=== PATIENT | male | born 1965 | race Caucasian/White ===

== ENCOUNTER 2019-02-05 20:36 | Emergency (ER) | payer BC, OTHER ==
[2019-02-05] MEDS ORDERED: Sodium Chloride 0.9% 10 ML Syringe FLUSH PRN (21:26)
--- NOTE | 2019-02-05 21:42 | EDM.PDOC ---
<Jaylin Escobedo - Last Filed: 02/05/19 22:25> ED HPI GENERAL MEDICAL PROBLEM - General Chief Complaint: Cardiovascular Problem Stated Complaint: LEG IS SWOLLEN Time Seen by Provider: 02/05/19 21:05 Source of Information: Reports: Patient, Family History Limitations: Reports: No Limitations - History of Present Illness INITIAL COMMENTS - FREE TEXT/NARRATIVE: Alert 53-year-old gentleman presents with left leg swelling. Patient noticed this morning when he arrived home from work this afternoon had significant swelling about the ankle with significant induration. Swelling has improved over the course of the last couple of hours. Patient has a history of chronic A. fib and which takes aspirin for prevention of clots. Patient had gastric bypass and was told due to decreased risk factors, but it was discontinued at the school. Patient has been drinking alcohol this evening in hopes of ending his blood. Patient presents with his for evaluation. Patient denies any chest pain, shortness breath, headache or any other systemic symptoms. Patient' s concern regarding a clot in his left leg. - Related Data Allergies Allergy/AdvReac Type Severity Reaction Status Date / Time adhesive tape Allergy Cannot Verified 02/05/19 20:58 Remember Sulfa (Sulfonamide Allergy Rash Verified 02/05/19 20:58 Antibiotics) Home Meds: Home Meds Aspirin [Halfprin] 325 mg PO DAILY 04/04/16 [History] Citalopram Hydrobromide [Celexa] 10 mg PO DAILY 07/12/16 [History] Metoprolol Succinate [Toprol XL] 25 mg PO BEDTIME 07/12/16 [History] Ciprofloxacin HCl [Cipro] 500 mg PO BID 02/05/19 [History] Vitamin B Complex [B Complex] 1 tab PO DAILY 02/05/19 [History] Past Medical History HEENT History: Reports: Cataract, Impaired Vision Cardiovascular History: Reports: Afib, High Cholesterol, Hypertension Respiratory History: Reports: Asthma Gastrointestinal History: Reports: GERD Genitourinary History: Reports: Renal Calculus Musculoskeletal History: Reports: Fracture Neurological History: Reports: Concussion, Head Trauma, Other (See Below) Other Neuro History: lymes disease Psychiatric History: Reports: Addiction, Anxiety, Depression Endocrine/Metabolic History: Reports: Diabetes, Type II Hematologic History: Reports: B12 Deficiency, Folic Acid - Infectious Disease History Infectious Disease History: Reports: Chicken Pox, Herpes, Meningitis - Past Surgical History HEENT Surgical History: Reports: Tonsillectomy, Other (See Below) Other HEENT Surgeries/Procedures: deviated septum Cardiovascular Surgical History: Reports: Other (See Below) GI Surgical History: Reports: Bariatric Procedure, Colonoscopy Musculoskeletal Surgical History: Reports: Arthroscopic Knee, Carpal Tunnel Social & Family History - Tobacco Use Smoking Status *Q: Never Smoker - Caffeine Use Caffeine Use: Reports: Coffee - Alcohol Use Days Per Week of Alcohol Use: 7 Number of Drinks Per Day: 4 Total Drinks Per Week: 28 - Recreational Drug Use Recreational Drug Use: No ED ROS GENERAL - Review of Systems Review Of Systems: ROS reveals no pertinent complaints other than HPI. Cardiovascular: Reports: Edema (left leg edema pitting improving ) ED EXAM, GENERAL - Physical Exam Exam: See Below Exam Limited By: No Limitations General Appearance: Alert (mild intoxication ) Eye Exam: Bilateral Eye: EOMI, PERRL Ears: Normal External Exam, Hearing Grossly Normal Ear Exam: Bilateral Ear: Auricle Normal, Canal Normal, TM normal Throat/Mouth: Normal Inspection, Normal Lips, Normal Teeth, Normal Gums, Normal Oropharynx, Normal Voice, No Airway Compromise Head: Normocephalic Neck: Normal Inspection, Supple, Non-Tender, Full Range of Motion Respiratory/Chest: No Respiratory Distress, Lungs Clear, Normal Breath Sounds, No Accessory Muscle Use, Chest Non-Tender Cardiovascular: Normal Peripheral Pulses, Irregularly Irregular, Other (edema pitting trace to +1 left leg ) GI/Abdominal: Normal Bowel Sounds, Soft, Non-Tender, No Organomegaly Back Exam: Normal Inspection, Full Range of Motion, NT Extremities: Normal Inspection, Normal Range of Motion, Non-Tender, Pedal Edema (+1 (photo available edema much improved from +3)) Neurological: Alert, Oriented, CN II-XII Intact, Normal Cognition (mild intoxication), Normal Gait, Normal Reflexes, No Motor/Sensory Deficits Psychiatric: Normal Affect (mild intoxication), Normal Mood Skin Exam: Warm, Dry, Intact, Normal Color, No Rash EKG INTERPRETATION EKG Date: 02/05/19 Time: 21:45 Rhythm: A-Fib Rate (Beats/Min): 66 [place]: Normal P-Wave: Variable (a fib) QRS: Normal ST-T: Normal QT: Normal Comparison: NA - No Prior EKG Course - Vital Signs Last Recorded V/S: Last Vital Signs Temp 97.0 F 0524/19 21:12 Pulse 69 02/05/19 22:10 Resp 16 02/05/19 22:10 BP 135/85 02/05/19 22:10 Pulse Ox 97 02/05/19 22:10 - Orders/Labs/Meds Orders: Active Orders 24 hr Category Date Time Status EKG Documentation Completion [RC] ASDIRECTED Care 02/05/19 21:21 Active Peripheral IV Care [RC] . DIRECTED Care 02/05/19 21:26 Active VL Duplex Lwr Ext Veins Ltd Lt [US] Stat Exams 02/05/19 22:03 Taken Sodium Chloride 0.9% [Saline Flush] Med 02/05/19 21:26 Active 10 ml FLUSH ASDIRECTED PRN Peripheral IV Insertion Adult [OM.PC] Routine Oth 02/05/19 21:26 Ordered EKG 12 Lead [EK] Routine Ther 02/05/19 21:21 Ordered Medication Orders Sodium Chloride (Saline Flush) 10 ml FLUSH ASDIRECTED PRN PRN Reason: Keep Vein Open Last Admin: 02/05/19 21:46 Dose: 10 ml Labs: Laboratory Tests 02/05/19 02/05/19 02/05/19 Range/Units 21:00 21:00 21:00 WBC (4.5-11.0) K/uL RBC (4.30-5.90) M/uL Hgb (12.0-15.0) g/dL Hct (40.0-54.0) % MCV (80-98) fL MCH (27-31) pg MCHC (32-36) % Plt Count (150-400) K/uL Neut % (Auto) (36-66) % Lymph % (Auto) (24-44) % [place] % (Auto) (2-6) % Eos % (Auto) (2-4) % Baso % (Auto) (0-1) % D-Dimer, Quantitative 744 H (0.0-400.0) ng/mL Sodium 138 L (140-148) mmol/L Potassium 3.7 (3.6-5.2) mmol/L Chloride 104 (100-108) mmol/L Carbon Dioxide 23 (21-32) mmol/L Anion Gap 14.7 H (5.0-14.0) mmol/L BUN 15 (7-18) mg/dL Creatinine 1.0 (0.8-1.3) mg/dL Est Cr Clr Drug Dosing 69.89 mL/min Estimated GFR (MDRD) > 60 (>60) Glucose 105 (74-106) mg/dL Calcium 8.7 (8.5-10.1) mg/dL Ethyl Alcohol 207 mg/dL 02/05/19 Range/Units 22:03 WBC 7.1 (4.5-11.0) K/uL RBC 4.59 (4.30-5.90) M/uL Hgb 10.6 L D (12.0-15.0) g/dL Hct 34.4 L (40.0-54.0) % MCV 75 L (80-98) fL MCH 23 L (27-31) pg MCHC 31 L (32-36) % Plt Count 311 (150-400) K/uL Neut % (Auto) 48 (36-66) % Lymph % (Auto) 37 (24-44) % [place] % (Auto) 11 H (2-6) % Eos % (Auto) 3 (2-4) % Baso % (Auto) 0 (0-1) % D-Dimer, Quantitative (0.0-400.0) ng/mL Sodium (140-148) mmol/L Potassium (3.6-5.2) mmol/L Chloride (100-108) mmol/L Carbon Dioxide (21-32) mmol/L Anion Gap (5.0-14.0) mmol/L BUN (7-18) mg/dL Creatinine (0.8-1.3) mg/dL Est Cr Clr Drug Dosing mL/min Estimated GFR (MDRD) (>60) Glucose (74-106) mg/dL Calcium (8.5-10.1) mg/dL Ethyl Alcohol mg/dL Meds: Medications Generic Name Dose Route Start Last Admin Trade Name Freq PRN Reason Stop Dose Admin Sodium Chloride 10 ml 02/05/19 21:26 02/05/19 21:46 Saline Flush FLUSH 10 ml ASDIRECTED PRN Administration Keep Vein Open - Re-Assessments/Exams Free Text/Narrative Re-Assessment/Exam: 02/05/19 22:27 Patient updated regarding blood tests: D-Dimer elevated 788 indicating possible DVT. US left leg ordered for confirmation. Discussed NOAC vs Lovenox/ Coumadin. Patient was on Coumadin in the past and would be more comfortable with Lovenox bridge to Coumadin. Departure - Departure Disposition: Home, Self-Care 01 Clinical Impression: Leg swelling, Leg edema, left Referrals: Rodrigo Lott MD [Primary Care Provider] - Forms: ED Department Discharge Additional Instructions: Please followup with your primary care provider in 3-5 days if not better, please call return to the emergency department with worsening of symptoms. <OfficerJalen - Last Filed: 02/05/19 23:45> Departure - Departure Time of Disposition: 23:44 Condition: Fair - Assessment/Plan Plan: Assessment Acuity = acute Site and laterality = left leg edema Etiology = unknown etiology Manifestations = pain left leg Location of injury = Home Lab values = hemoglobin low at 10.6 consistent with microchromic anemia d-dimer elevated 744 EtOH 207 ultrasound of the left lower extremity whole leg negative for any DVT Plan I did review lab work and ultrasound results with him, His Wells score is 5 puts him at higher risk for DVT would recommend repeat ultrasound in 1 week, he is going to follow up with his primary care in 3-5 days for reevaluation. This note was dictated using [employer] voice recognition software please call with any questions on syntax or grammar.
[2019-02-05 22:10] VITALS: BP 135/85
--- NOTE | 2019-02-06 | CRLUS ---
INDICATION: Left lower extremity swelling TECHNIQUE: Ultrasound venous duplex lower left extremity. Compression venous exam was performed using pink-scale, color Doppler, and spectral Doppler analysis. COMPARISON: None FINDINGS: Sonographic imaging demonstrates the left common femoral, deep femoral, superficial femoral, popliteal, posterior tibial and greater saphenous veins to be fully compressible with normal color Doppler blood flow. IMPRESSION: Normal left lower extremity venous ultrasound, no sign of deep venous thrombosis. Dictated by Sanford Benitez MD @ 02/05/2019 11:57:55 PM Dictated by: Sanford Benitez MD @ 02/05/2019 23:58:02 (Electronically Signed)
== END 2019-02-05 23:56 | disposition home or self-care (01) ==
LOC: JP.ED 20:36
DX: R60.0 Localized edema (principal); F10.129 Alcohol abuse with intoxication, unspecified; I10 Essential (primary) hypertension; F41.9 Anxiety disorder, unspecified; F32.9 Major depressive disorder, single episode, unspecified; I48.2 Chronic atrial fibrillation; E11.9 Type 2 diabetes mellitus without complications; Z88.2 Allergy status to sulfonamides; Z91.09 Other allergy status, other than to drugs and biological substances; Z79.82 Long term (current) use of aspirin; Z79.899 Other long term (current) drug therapy; Z98.890 Other specified postprocedural states; Z98.84 Bariatric surgery status; Y90.7 Blood alcohol level of 200-239 mg/100 ml
CPT/HCPCS: 36415; 80048; 85025; 85379; 93005; 93971; 99284; G0480